=== PATIENT | female | born 1970 | race Two or more races ===

== ENCOUNTER 2018-01-12 11:01 | Outpatient (CLI) | payer OTHER | END 2018-01-12 11:42 | disposition home or self-care (01) | LOC: RAD 501 11:01 | DX: M25.551 Pain in right hip (principal) ==

== ENCOUNTER → 2018-04-15 | Outpatient (CLI) | payer OTHER | END | disposition home or self-care (01) | LOC: NUCLEAR 10:30 | DX: M81.0 Age-related osteoporosis without current pathological fracture (principal) ==

== ENCOUNTER 2019-01-06 10:23 | Outpatient (CLI) | payer OTHER | END 2019-01-06 11:17 | disposition home or self-care (01) | LOC: RAD 501 10:23 | DX: M25.512 Pain in left shoulder (principal); M25.522 Pain in left elbow ==

== ENCOUNTER → 2019-01-14 | Outpatient (CLI) | payer OTHER | END | disposition home or self-care (01) | LOC: MAMO-SONO 09:15 → SONOGRAMA 09:22 | DX: M25.512 Pain in left shoulder (principal) ==

== ENCOUNTER 2020-09-05 12:19 | Outpatient (CLI) | payer OTHER | END 2020-09-05 22:22 | disposition home or self-care (01) | LOC: PPH VACUNA 12:19 | DX: Z23 Encounter for immunization (principal) ==

== ENCOUNTER → 2021-05-23 | Outpatient (CLI) | payer OTHER | END | disposition home or self-care (01) | LOC: SONOGRAMA 09:20 → MAMO-SONO 05-30 09:00 | PROVIDERS: ATTEND Internal Medicine Endocrinology, Diabetes & Metabolism | DX: E06.3 Autoimmune thyroiditis (principal); R73.03 Prediabetes ==

== ENCOUNTER 2021-05-30 08:03 | Outpatient (CLI) | payer OTHER | END 2021-05-30 08:14 | disposition home or self-care (01) | LOC: TOM 08:03 | PROVIDERS: ATTEND Obstetrics & Gynecology | DX: R10.84 Generalized abdominal pain (principal) ==

== ENCOUNTER 2021-06-04 08:00 | Outpatient (CLI) | payer OTHER | END 2021-06-04 08:30 | disposition home or self-care (01) | LOC: PPH VACUNA 08:00 | PROVIDERS: ATTEND Emergency Medicine Pediatric Emergency Medicine | DX: Z23 Encounter for immunization (principal) ==

== ENCOUNTER 2024-04-07 09:43 | Outpatient (CLI) | payer OTHER | END 2024-04-07 09:48 | disposition home or self-care (01) | LOC: SONOGRAMA 09:43 | PROVIDERS: ATTEND Pathology Anatomic Pathology & Clinical Pathology | DX: D34 Benign neoplasm of thyroid gland (principal); E07.89 Other specified disorders of thyroid; E07.9 Disorder of thyroid, unspecified ==

== ENCOUNTER 2024-07-21 08:22 | Outpatient (CLI) | payer OTHER | END 2024-07-21 08:31 | disposition home or self-care (01) | LOC: RAD 08:22 | PROVIDERS: ATTEND Orthopaedic Surgery | DX: M25.511 Pain in right shoulder (principal); M25.512 Pain in left shoulder ==

== ENCOUNTER 2024-08-02 07:10 | Outpatient (CLI) | payer OTHER | END 2024-08-02 07:25 | disposition home or self-care (01) | LOC: SONOGRAMA 07:10 | PROVIDERS: ATTEND Orthopaedic Surgery | DX: M25.511 Pain in right shoulder (principal); M25.512 Pain in left shoulder ==

== ENCOUNTER 2025-07-31 07:38 | Outpatient (CLI) | payer OTHER | END 2025-07-31 07:47 | disposition home or self-care (01) | LOC: SONOGRAMA 07:38 | PROVIDERS: ATTEND Specialist | DX: E03.9 Hypothyroidism, unspecified (principal) ==